=== PATIENT | male | born 1985 | race African-American/Black ===

== ENCOUNTER 2021-06-28 23:19 | Emergency (ER) | payer OTHER ==
[~2021-06-28] VITALS: Ht 167.6 cm; Wt 127.0 kg
[2021-06-28 23:21] VITALS: BP 165/90
== END 2021-06-28 23:53 | disposition home or self-care (01) ==
LOC: ER 23:19
DX: R51.9 Headache, unspecified (principal); Z88.8 Allergy status to other drugs, medicaments and biological substances